=== PATIENT | male | born 1970 | race Caucasian/White ===

== ENCOUNTER 2023-11-17 13:44 | Emergency (ER) | payer OTHER ==
[2023-11-17] MEDS: Sodium Chloride 0.9% 1,000 ML IV ONE (14:34)
[2023-11-17 14:37] LABS: BASOPHILS ABSOLUTE AUTO 0.02 K/uL (0.00-0.20); BASOPHILS PERCENT AUTO 0.4 % (0.0-1.0); EOSINOPHILS ABSOLUTE AUTO 0.14 K/uL (0.00-0.45); EOSINOPHILS PERCENT AUTO 2.5 % (0.0-6.0); HEMATOCRIT 43.9 % (42.0-52.0); IMMATURE GRAN ABSOLUTE AUTO 0.01 K/uL (0.00-0.05); IMMATURE GRAN PERCENT AUTO 0.2 % (0.0-0.4); LYMPHOCYTES ABSOLUTE AUTO 1.47 K/uL (1.00-4.80); LYMPHOCYTES PERCENT AUTO 26.4 % (24.0-44.0); MEAN CORPUSCULAR HEMOGLOBIN 30.6 pg (28.0-32.0); MEAN CORPUSCULAR HGB CONC 36.4 g/dL (32.0-36.0); MEAN CORPUSCULAR VOLUME 83.9 fL (83.0-99.0); MEAN PLATELET VOLUME 9.9 fL (9.4-12.4); MONOCYTES ABSOLUTE AUTO 0.77 K/uL (0.00-0.80); MONOCYTES PERCENT AUTO 13.8 % (0.0-8.0); NEUTROPHILS ABSOLUTE AUTO 3.15 K/uL (1.80-7.70); NEUTROPHILS PERCENT AUTO 56.7 % (41.0-71.0); PLATELET COUNT,PLT 272 K/uL (150-400); RED BLOOD CELL COUNT 5.23 M/uL (4.52-5.90); WHITE BLOOD CELL COUNT,WBC 5.56 K/uL (3.9-11.3)
[2023-11-17 14:59] LABS: A/G RATIO 1.2 (0.9-1.6); ALBUMIN 3.9 g/dL (3.4-5.0); BILIRUBIN TOTAL 0.7 mg/dL (0.2-1.0); CALCIUM 9.3 mg/dL (8.5-10.1); CARBON DIOXIDE,CO2 30.1 mmol/L (21.0-32.0); CREATININE 1.3 mg/dL (0.8-1.3); EST CRCL DRUG DOSING (CG) 69.41 mL/min; MAGNESIUM 2.1 mg/dL (1.8-2.4); POTASSIUM,K 2.7 mmol/L (3.5-5.1); PROTEIN TOTAL,TP 7.1 g/dL (6.4-8.2)
[2023-11-17] MEDS: Potassium Chloride 20 MEQ Tab.ER PO ONE (15:29)
[2023-11-17] MEDS: Potassium Chloride 100 ML IV SCH (15:30)
== END 2023-11-17 19:56 | disposition home or self-care (01) ==
LOC: MW.ED 13:44
DX: E87.6 Hypokalemia (principal); Z75.8 Other problems related to medical facilities and other health care
CPT/HCPCS: 36415; 80053; 83735; 85025; 93005; 96361; 96365; 96366; 99285; A9270; J3480; J7030; 93010; 99283